=== PATIENT | female | born 1935 | race Two or more races ===

== ENCOUNTER → 2022-05-27 | Emergency (ER) | payer OTHER ==
[~2022-05-27] VITALS: Ht 147.3 cm; Wt 50.3 kg
[~2022-05-27] MED LIST: ADULT LOW DOSE81 M1 PO; AMOX1TAB5 PO; BUSPIRONE HCL7.5 MG PO; GRALISE600 MG PO; TOPROL XL100 M1 PO; VISTARIL50 MG PO
== END | disposition home or self-care (01) ==
LOC: ER 21:42
DX: R05.8 Other specified cough (principal); F41.9 Anxiety disorder, unspecified; Z88.8 Allergy status to other drugs, medicaments and biological substances; Z91.010 Allergy to peanuts; I10 Essential (primary) hypertension